=== PATIENT | female | born 1990 | race African-American/Black ===

== ENCOUNTER 2022-04-13 13:25 | Emergency (ER) | payer OTHER ==
[2022-04-13 13:57] LABS: HCG,QUALITATIVE URINE Negative
[2022-04-13 14:06] VITALS: BP 129/82; PULSE 89; RESP 18; TEMP 99.4; BMI 32.8
[2022-04-13 14:18] LABS: EPITHELIAL CELLS MANY /hpf
[2022-04-13] MEDS ORDERED: ACETAMINOPHEN 325 MG TABLET (FP) PO ONE (15:05)
[2022-04-13] MEDS ORDERED: MAG HYDROX/AL HYDROX/SIMETH -MYLANTA- ORAL SUSPENSION PO ONE (15:05)
[2022-04-13] MEDS ORDERED: MAG HYDROX/AL HYDROX/SIMETH 30 ML UNIT-DOSE CUP ONE (15:14)
[2022-04-13] MEDS ORDERED: ACETAMINOPHEN 325 MG TABLET (FP) ONE (15:14)
[2022-04-13 15:34] LABS: HEMATOCRIT 41.9 % (32.4-45.2); HEMOGLOBIN 14.2 G/dL (10.7-15.3); MCH 30.8 pg (25.7-33.7); MCHC 33.9 g/dl (32.0-36.0); MEAN CELL VOLUME 90.8 fl (80-96); MEAN PLT VOLUME 6.5 fl (7.5-11.1); PLATELET COUNT 348.9 10^3/uL (134-434); RBC 4.61 10^6/uL (3.60-5.2); RDW 13.6 % (11.6-15.6); WHITE BLOOD COUNT 6.7 10^3/uL (4.0-10.8)
[2022-04-13 15:36] LABS: PLATELET ESTIMATE ADEQUATE
[2022-04-13 15:50] LABS: ALBUMIN 3.8 g/dl (3.4-5.0); BILIRUBIN,TOTAL 0.7 mg/dl (0.2-1); CALCIUM 8.7 mg/dl (8.5-10); CREATININE 0.7 mg/dl (0.55-1.3); TOT PROT 7.2 g/dl (6.4-8.2)
== END 2022-04-13 17:34 | disposition home or self-care (01) ==
LOC: FER 13:25
DX: R10.13 Epigastric pain (principal)
CPT/HCPCS: 36415; 80053; 81003; 81015; 83690; 84703; 85025; 87086; 99283-25